=== PATIENT | male | born 1970 | race Caucasian/White ===

== ENCOUNTER 2025-01-22 10:07 | Outpatient (CLI) | payer MEDICARE, SELFPAY ==
--- NOTE | ~2025-01-22 | XR_ITS ---
XR shoulder LT min 2V 01/22/2025 10:57 Indication: Left shoulder pain Procedure: 4 views left shoulder Comparison: No prior studies for comparison. Findings: There is polyarticular osteoarthritis. No fracture or traumatic malalignment. No focal soft tissue abnormality. No foreign bodies. Impression: 1: Polyarticular osteoarthritis of the left shoulder. Reviewed, dictated and finalized at location A. Impression: 1: Polyarticular osteoarthritis of the left shoulder.
--- OUTSIDE RECORDS SUMMARY | 2025-01-22 11:28 | XMS_ITS | Continuity of Care Document ---
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 Role Phone Sharyn Spann MD Unavailable Unavailable Procedures Procedure Date OFFICE/OUTPATIENT VISIT, [facility] UPPER GI ENDOSCOPY, BIOPSY OFFICE/OUTPATIENT VISIT, [facility] Advance Directives Directive Yes / No Effective Date File Name No Information Encounters Encounter Description Practice Location Reason(s) For Visit Diagnoses Date Provider Providers Copied on Encounter OFFICE/OUTPAT IENT VISIT, [facility], [address] [place] [address], [id number], tel:[phone] Main Office No Information Zana Coles. [address] [place] [address], [facility], . tel:[phone] Referring Provider: Sultana Mlilan, [address] [place] [address], [address]. tel:[phone] [facility], [address], [place], [id number], tel:[phone] [facility] No Information Zana Coles. [address], [place], [address], [place]. tel:[phone] Referring Provider: Sultana Millan, [address] [place] [address], [id number]. tel:[phone] OFFICE/OUTPAT IENT VISIT, [facility], [address] [place], [id number], tel:[phone] Main Office No Information Zana Coles. [address] [place], [address], [place]. tel:[phone] Referring Provider: Sultana Millan, [address] [place] [address], [address]. tel:[phone] Family History Family Member Type Diagnosis Age At Onset No Information Payers Payer name Insurance type Covered green party ID Authoriza tion(s) Medicare MB [id number] Social History Type Description Quantity Date Captured Comments Sex Male Smoking Status No Information Chief Complaint And Reason For Visit No Information Reason For Referral Reason For Referral No Information History Of Present Illness Encounter Date Complaint History Of Prese nt Illness No Information Functional Status Date Functional Assessmen t No Information Instructions Date Instruction Additional Infor mation No Information Assessments Type Assessment Date No Information Patient Care Teams Name Effective Dates (start - stop) Status Members No Information
== END 2025-01-22 10:08 | disposition home or self-care (01) ==
LOC: ANHIMG 10:23
PROVIDERS: PCP Family Medicine; Visit Provider Registered Nurse
DX: M19.012 Primary osteoarthritis, left shoulder (principal)
CPT/HCPCS: 73030

== ENCOUNTER 2025-02-05 09:36 | Outpatient (CLI) | payer MEDICARE, SELFPAY ==
--- NOTE | ~2025-02-05 | US_ITS ---
US arterial ankle brachial ind INDICATION: Prediabetic TECHNIQUE: Segmental pressures and plethysmographic and Doppler waveforms of the brachial and lower e xtremity arteries were obtained. COMPARISON: None. FINDINGS: Right and left brachial artery pressures of 120 mm Hg and 112 mm Hg, respectively, are concordant (no rmal difference <= 30 mmHg). There is biphasic flow bilaterally in the posterior tibial and dorsalis pedis arteries. The right ankle-brachial index (CARMINA) is 1.29 (normal >= 0.9-1.0). The right great toe-brachial index (TBI) is 0.85 (normal >= 0.60). The left CARMINA is 1.25. The left TBI is 0.85. IMPRESSION: 1. Normal ankle-brachial indices. Reviewed, dictated and finalized at location A.
--- OUTSIDE RECORDS SUMMARY | 2025-02-05 10:06 | XMS_ITS | Continuity of Care Document ---
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 Name Role Phone Sharyn Spann MD Unavailable Unavailable Procedures Procedure Date OFFICE/OUTPATIENT VISIT, [facility] UPPER GI ENDOSCOPY, BIOPSY OFFICE/OUTPATIENT VISIT, [facility] Advance Directives Directive Yes / No Effective Date File Name No Information Encounters Encounter Description Practice Location Reason(s) For Visit Diagnoses Date Provider Providers Copied on Encounter OFFICE/OUTPAT IENT VISIT, [facility], [address] [place] [address], [id number], tel:[phone] Main Office No Information Zana Coles. [address] [place] [address], [facility], . tel:[phone] Referring Provider: Sultana Millan, [address] [place] [address], [address]. tel:[phone] [facility], [address], [place], [id number], tel:[phone] [facility] No Information Zana Coles. [address], [place], [address], [place]. tel:[phone] Referring Provider: Sultana Millan, [address] [place] [address], [address]. tel:[phone] OFFICE/OUTPAT IENT VISIT, [facility], [address], [place], [id number], tel:[phone] Main Office No Information Zana Coles. [address] [place], [address], [place]. tel:[phone] Referring Provider: Sultana Millan, [address] [place] [address], [address]. tel:[phone] Family History Family Member Type Diagnosis Age At Onset No Information Payers Payer name Insurance type Covered democrat ID Authoriza tion(s) Medicare MB [id number] Social History Type Description Quantity Date Captured [...]
== END 2025-02-05 09:37 | disposition home or self-care (01) ==
PROVIDERS: PCP Family Medicine; Visit Provider Family Medicine
DX: G83.9 Paralytic syndrome, unspecified (principal); R73.03 Prediabetes; Z87.891 Personal history of nicotine dependence
CPT/HCPCS: 93922